=== PATIENT | female | born 1945 | race Caucasian/White ===

== ENCOUNTER 2020-05-29 14:03 | Observation (INO) ==
[2020-05-29] MEDS ORDERED: SODIUM CHLORIDE 0.9% 1,000 ML IV STA (14:32)
[2020-05-29 14:43] LABS: Eosinophils # 0.1 10*3/uL (0.0-0.87); Hematocrit 39.3 VOL% (35.7-47.0); Hemoglobin 12.5 GM/DL (12.0-16.0); Immature Granulocytes % 0.2 %; Immature Granulocytes Absolute 0.01 #; Lymphocytes # 1.3 10*3/uL (1.4-4.0); Lymphocytes % 30.8 % (21.3-54.2); Mean Corpuscular HGB Conc 31.8 GM/DL (32-36); Mean Corpuscular Volume 92.5 FL (87-102); Mean Platelet Volume 11.1 FL (9.6-12.0); Monocytes % 7.3 % (1.7-12.7); Neutrophils % 58.7 % (38.7-73.9); Platelet Count 227 T/CUMM (130-400); Red Blood Count 4.25 MC/CUMM (3.8-5.5); Red Cell Distribution Width 13.3 % (9.3-17.3); White Blood Count 4.1 T/CUMM (4-12)
[2020-05-29 14:47] LABS: INR 1.1; PT Patient Result 11.8 SECS (9.8-11.9); Partial Thromboplastin Time 28.4 SECS (23.9-33.8)
[2020-05-29 15:02] LABS: Alanine Aminotransferase < 6 U/L (13-56); Albumin 3.3 G/DL (3.4-5.0); Alkaline Phosphatase 77 U/L (45-117); Aspartate Amino Transferase 12 U/L (0-37); Bilirubin,Total < 0.39 MG/DL (0.2-1.0); Blood Urea Nitrogen 18 MG/DL (7-18); Calcium 8.9 MG/DL (8.5-10.1); Carbon Dioxide 29 MMOL/L (21-32); Estimated Glom Filtration Rate 56 ML/MIN; Glucose 122 MG/DL (74-106); Osmolality,Calculated 285.1 MOS/KG (273-304); Potassium 3.9 MMOL/L (3.5-5.1); Sodium 142 MMOL/L (136-145); Total Protein 6.5 G/DL (6.4-8.2)
[2020-05-29 15:31] LABS: ABG Base Excess 2.5 MMOL/L (-2.5-2.5); ABG HCO3 26.6 MMOL/L (20-26); ABG Oxygen Saturation 95.7 % (95-100); ABG PCO2 38.8 MM HG (35-48); ABG PH 7.444 (7.35-7.45); ABG PO2 80.6 MM HG (80-95); ABG TCO2 23.6 MMOL/L (23-27); Pt O2 Delivery Device Room Air
[2020-05-29 15:44] LABS: Bilirubin,Urine Negative (Negative); Blood, Urine Small mg/dL (Negative); Glucose,Urine (UA) Negative (Negative); Ketones,Urine Negative (Negative); Mucus,Urine Few /LPF (Occasional); Nitrite,Urine Negative (Negative); Protein,Urine Negative; RBC,Urine 15 /HPF (0-4); Squamous Epithelial Cell,Urine Occasional /HPF (0-10); Urine Appearance CLOUDY (Clear); Urine Color Yellow (Yellow); Urine Specific Gravity 1.014 (1.001-1.035); WBC,Urine 225 /HPF (0-6)
[2020-05-29 15:49] LABS: Barbiturates Screen,Urine Negative (Negative); Benzodiazepines Screen,Urine Negative (Negative); Cannabinoid Screen,Urine Negative (Negative); Opiate Screen,Urine Negative (Negative); Phencyclidine Screen,Urine Negative (Negative)
[2020-05-29] MEDS ORDERED: GLUCAGON 1 MG VIAL IM PRN (16:29)
[2020-05-29] MEDS ORDERED: DEXTROSE 50% 25 GM/50 ML VIAL IV PRN (16:29)
[2020-05-29] MEDS ORDERED: ACETAMINOPHEN 325 MG TABLET PO PRN (16:38)
[2020-05-29] MEDS ORDERED: ZALEPLON 5 MG CAPSULE PO PRN (16:38)
[2020-05-29] MEDS: cefTRIAXone 1,000 MG in SODIUM CHLORIDE 0.9% 100 ML IV SCH (17:38)
[2020-05-29] MEDS: SODIUM CHLORIDE 0.9% 1,000 ML IV SCH (18:31)
[2020-05-29] MEDS ORDERED: MELATONIN 3 MG TABLET PO SCH (21:00)
[2020-05-29] MEDS ORDERED: ASPIRIN EC 81 MG TABLET PO SCH (21:00)
[2020-05-29] MEDS ORDERED: DONEPEZIL 10 MG TABLET PO SCH (21:00)
[2020-05-29] MEDS ORDERED: ENOXAPARIN 40 MG/0.4 ML SYRINGE SUBCUT SCH (21:00)
[2020-05-29] MEDS: CARBIDOPA/LEVODOPA 25-100 MG TABLET PO SCH (22:19)
[2020-05-29] MEDS: MEMANTINE 10 MG TABLET PO SCH (22:20)
[2020-05-29] MEDS: DEXTROMETHORPHAN QUINIDINE PO SCH (22:21)
[2020-05-29] MEDS: busPIRone 10 MG TABLET PO SCH (22:21)
[2020-05-29] MEDS: DIVALPROEX SPRINKLE 125 MG CAPSULE PO SCH (22:21)
[2020-05-30 05:33] LABS: Basophils % 0.8 % (0.0-0.8); Eosinophils # 0.1 10*3/uL (0.0-0.87); Eosinophils % 3.4 % (0.00-10.9); Hematocrit 34.7 VOL% (35.7-47.0); Hemoglobin 10.9 GM/DL (12.0-16.0); Immature Granulocytes % 0.8 %; Immature Granulocytes Absolute 0.03 #; Lymphocytes # 1.5 10*3/uL (1.4-4.0); Lymphocytes % 38.3 % (21.3-54.2); Mean Corpuscular HGB Conc 31.4 GM/DL (32-36); Mean Corpuscular Volume 92.8 FL (87-102); Mean Platelet Volume 11.3 FL (9.6-12.0); Monocytes % 9.2 % (1.7-12.7); Neutrophils % 47.5 % (38.7-73.9); Platelet Count 194 T/CUMM (130-400); Red Blood Count 3.74 MC/CUMM (3.8-5.5); Red Cell Distribution Width 13.3 % (9.3-17.3); White Blood Count 3.8 T/CUMM (4-12)
[2020-05-30 06:02] LABS: Hypochromasia 1+
[2020-05-30 06:03] LABS: Platelet Estimate Adequate
[2020-05-30 06:06] LABS: Calcium 8.4 MG/DL (8.5-10.1); Osmolality,Calculated 280.1 MOS/KG (273-304); Potassium 3.4 MMOL/L (3.5-5.1)
[2020-05-30] MEDS ORDERED: PHENAZOPYRIDINE 95 MG TABLET PO SCH (09:00)
[2020-05-30] MEDS ORDERED: DULoxetine 30 MG CAPSULE PO SCH (09:00)
[2020-05-30] MEDS ORDERED: PANTOPRAZOLE 40 MG TABLET PO SCH (09:00)
[2020-05-30] MEDS ORDERED: CHOLECALCIFEROL 1,000 UNIT TABLET PO SCH (09:00)
[2020-05-30] MEDS ORDERED: NAPROXEN 250 MG TABLET PO SCH (09:00)
[2020-05-30] MEDS ORDERED: CYANOCOBALAMIN 500 MCG TABLET PO SCH (09:00)
[2020-05-30] MEDS: CARBIDOPA/LEVODOPA 25-100 MG TABLET PO SCH (09:54)
[2020-05-30] MEDS: SODIUM CHLORIDE 0.9% 1,000 ML IV SCH (09:54)
[2020-05-30] MEDS: DIVALPROEX SPRINKLE 125 MG CAPSULE PO SCH (09:54)
[2020-05-30] MEDS: cefTRIAXone 1,000 MG in SODIUM CHLORIDE 0.9% 100 ML IV SCH (09:54)
[2020-05-30] MEDS: MEMANTINE 10 MG TABLET PO SCH (09:55)
[2020-05-30] MEDS: busPIRone 10 MG TABLET PO SCH (09:55)
[2020-05-30] MEDS: DEXTROMETHORPHAN QUINIDINE PO SCH (10:21)
[2020-05-30] MEDS ORDERED: POTASSIUM CHLORIDE 20 MEQ TABLET PO ONE (11:00)
[2020-05-30 12:05] VITALS: BP 117/45
[2020-05-31] MEDS ORDERED: DOCUSATE SODIUM 100 MG CAPSULE PO SCH (09:00)
== END 2020-05-30 14:09 ==
LOC: EDBD → EDUNIT# → N.ED 14:03 → N.EDINP 14:03 → N.5E 17:54
PROVIDERS: ADMIT Internal Medicine; ATTEND Internal Medicine